=== PATIENT | female | born 1975 | race Caucasian/White ===

== ENCOUNTER 2020-11-12 13:21 | Emergency (ER) | payer MEDICARE, BC ==
[2020-11-12] MEDS ORDERED: Ketorolac 30 MG/ML SDV IM STA (13:26)
[2020-11-12] MEDS ORDERED: Cyclobenzaprine 10 MG Tab PO ONE (13:26)
[2020-11-12] MEDS ORDERED: Acetaminophen 500 MG Tab PO ONE (13:26)
--- NOTE | 2020-11-12 14:18 | EDM.PDOC ---
ED HPI GENERAL MEDICAL PROBLEM - General Stated Complaint: BACK PAIN Time Seen by Provider: 11/12/20 14:00 Source of Information: Reports: Patient History Limitations: Reports: No Limitations - History of Present Illness INITIAL COMMENTS - FREE TEXT/NARRATIVE: Patient presented to the ED because of low back pain after lifting some heavy staff. The pain is over the lumar region radiating to he rt buttock. The pain is sharp 8/10 and worse with movements. - Related Data Allergies Allergy/AdvReac Type Severity Reaction Status Date / Time Sulfa (Sulfonamide Allergy Hives Verified 11/12/20 13:45 Antibiotics) Home Meds: Home Meds Brexpiprazole [Rexulti] 3 mg PO DAILY 11/12/20 [History] Cyclobenzaprine [Flexeril] 10 mg PO TID PRN #15 tab 11/12/20 [Rx] FLUoxetine HCl [Fluoxetine HCl] 40 mg PO DAILY 11/12/20 [History] Ibuprofen 800 mg PO Q8H PRN #30 tablet 11/12/20 [Rx] atenoloL [Atenolol] 100 mg PO DAILY 11/12/20 [History] lisinopriL [Lisinopril] 10 mg PO DAILY 11/12/20 [History] oxyCODONE HCl/Acetaminophen [Oxycodone-Acetaminophen 5-325] 1 each PO BID 11/12/20 [History] predniSONE [Prednisone] 40 mg PO DAILY #10 tablet 11/12/20 [Rx] tiZANidine [Zanaflex] 4 mg PO DAILY 11/12/20 [History] ED ROS GENERAL - Review of Systems Review Of Systems: See Below Constitutional: Reports: No Symptoms HEENT: Reports: No Symptoms Respiratory: Reports: No Symptoms Cardiovascular: Reports: No Symptoms Endocrine: Reports: No Symptoms GI/Abdominal: Reports: No Symptoms : Reports: No Symptoms Musculoskeletal: Reports: Back Pain Skin: Reports: No Symptoms Neurological: Reports: No Symptoms Psychiatric: Reports: No Symptoms ED EXAM,LOWER BACK PAIN/INJURY - Physical Exam Exam: See Below Exam Limited By: No Limitations General Appearance: Alert, No Apparent Distress Ears: Normal External Exam, Normal Canal Nose: Normal Inspection, Normal Mucosa Throat/Mouth: Normal Inspection, Normal Lips, Normal Teeth Head: Atraumatic, Normocephalic Neck: Normal Inspection, Supple, Non-Tender, Full Range of Motion Respiratory/Chest: No Respiratory Distress, Lungs Clear, Normal Breath Sounds Cardiovascular: Normal Peripheral Pulses, Regular Rate, Rhythm, No Edema, No Gallop GI/Abdominal: Normal Bowel Sounds, Soft, Non-Tender, No Organomegaly Back Exam: Normal Inspection, Muscle Spasm, Paraspinal Tenderness Extremities: Normal Inspection Neurological: Alert, Normal Mood/Affect, Normal Dorsiflexion Course - Vital Signs Text/Narrative:: Toradol 60 mg IM x1 Flexeril 10 mg PO x1 Tylenol 1000 mg po x1 - Orders/Labs/Meds Meds: Medications Discontinued Medications Generic Name Dose Route Start Last Admin Trade Name Freq PRN Reason Stop Dose Admin Acetaminophen 1,000 mg 11/12/20 13:26 11/12/20 13:56 Acetaminophen 500 Mg Tab PO 11/12/20 13:27 1,000 mg ONETIME ONE Administration Cyclobenzaprine HCl 10 mg 11/12/20 13:26 11/12/20 13:57 Cyclobenzaprine 10 Mg Tab PO 11/12/20 13:27 10 mg ONETIME ONE Administration Ketorolac Tromethamine 60 mg 11/12/20 13:26 11/12/20 13:54 Ketorolac 30 Mg/Ml Sdv IM 11/12/20 13:27 60 mg NOW STA Administration Departure - Departure Time of Disposition: 14:30 Disposition: Home, Self-Care 01 Condition: Good Clinical Impression: Lumbar strain, Sciatica - Discharge Information Prescriptions: Cyclobenzaprine [Flexeril] 10 mg PO TID PRN #15 tab PRN Reason: Spasms Ibuprofen 800 mg PO Q8H PRN #30 tablet PRN Reason: Pain predniSONE [Prednisone] 40 mg PO DAILY #10 tablet Instructions: Sciatica, [id number], Lumbosacral Strain Referrals: Melani Platt NP [Primary Care Provider] - Additional Instructions: Please read discharge instructions on lumbosacral strain and sciatica Take all the following medications at the same time for better pain relief: Ibuprofen 800 mg, tylenol 1000, flexeril 10 mg every 8 hours as needed for pain and spasms. Prednisone 20 mg, 2 tablets daily for 5 days. Take your firs dose today Follow up as needed
== END 2020-11-12 14:45 | disposition home or self-care (01) ==
LOC: FB.ED 13:21
DX: M54.41 Lumbago with sciatica, right side (principal); Z88.2 Allergy status to sulfonamides; Z79.899 Other long term (current) drug therapy; X50.1XXA Overexertion from prolonged static or awkward postures, initial encounter
CPT/HCPCS: 96372; 99283; A9270; J1885

== ENCOUNTER 2021-01-14 19:29 | Emergency (ER) | payer BC, MEDICARE ==
--- NOTE | 2021-01-14 20:34 | EDM.PDOC ---
ED HPI GENERAL MEDICAL PROBLEM - General Chief Complaint: General Stated Complaint: SORE THROAT Time Seen by Provider: 01/14/21 19:45 Source of Information: Reports: Patient History Limitations: Reports: No Limitations - History of Present Illness INITIAL COMMENTS - FREE TEXT/NARRATIVE: Patient presented to the ED because of sore throat which started yesterday. There is no cough/cold or fever. She thinks she have strep throat. - Related Data Allergies Allergy/AdvReac Type Severity Reaction Status Date / Time Sulfa (Sulfonamide Allergy Hives Verified 01/14/21 19:39 Antibiotics) Home Meds: Home Meds Brexpiprazole [Rexulti] 3 mg PO DAILY 11/12/20 [History] Cyclobenzaprine [Flexeril] 10 mg PO TID PRN #15 tab 11/12/20 [Rx] FLUoxetine HCl [Fluoxetine HCl] 40 mg PO DAILY 11/12/20 [History] Ibuprofen 800 mg PO Q8H PRN #30 tablet 11/12/20 [Rx] atenoloL [Atenolol] 100 mg PO DAILY 11/12/20 [History] lisinopriL [Lisinopril] 10 mg PO DAILY 11/12/20 [History] oxyCODONE HCl/Acetaminophen [Oxycodone-Acetaminophen 5-325] 1 each PO BID 11/12/20 [History] predniSONE [Prednisone] 40 mg PO DAILY #10 tablet 11/12/20 [Rx] tiZANidine [Zanaflex] 4 mg PO DAILY 11/12/20 [History] Past Medical History Cardiovascular History: Reports: Hypertension Respiratory History: Reports: None Genitourinary History: Reports: None 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 Musculoskeletal History: Reports: Back Pain, Chronic Neurological History: Reports: None Psychiatric History: Reports: None Endocrine/Metabolic History: Reports: Obesity/BMI 30+ Hematologic History: Reports: None Oncologic (Cancer) History: Reports: None Dermatologic History: Reports: None - Infectious Disease History Infectious Disease History: Reports: None - Past Surgical History GI Surgical History: Reports: Cholecystectomy Social & Family History - Family History Family Medical History: No Pertinent Family History - Tobacco Use Tobacco Use Status *Q: Unknown Ever Used Tobacco - Caffeine Use Caffeine Use: Reports: None ED ROS GENERAL - Review of Systems Review Of Systems: See Below Constitutional: Reports: No Symptoms HEENT: Reports: Throat Pain Respiratory: Reports: No Symptoms Cardiovascular: Reports: No Symptoms Endocrine: Reports: No Symptoms GI/Abdominal: Reports: No Symptoms : Reports: No Symptoms Musculoskeletal: Reports: No Symptoms Skin: Reports: No Symptoms Neurological: Reports: No Symptoms Psychiatric: Reports: No Symptoms ED EXAM, GENERAL - Physical Exam Exam: See Below Exam Limited By: No Limitations General Appearance: Alert, No Apparent Distress Ears: Normal External Exam, Normal Canal Nose: Normal Inspection, Normal Mucosa, No Blood Throat/Mouth: Normal Inspection, Normal Lips, Normal Teeth, Other (pharyngeal erythema) Neck: Normal Inspection, Supple, Non-Tender, Full Range of Motion Respiratory/Chest: No Respiratory Distress, Lungs Clear, Normal Breath Sounds, No Accessory Muscle Use, Chest Non-Tender Cardiovascular: Normal Peripheral Pulses, Regular Rate, Rhythm, No Edema, No Gallop, No JVD, No Murmur, No Rub GI/Abdominal: Normal Bowel Sounds, Soft, Non-Tender, No Organomegaly, No Distention, No Abnormal Bruit, No Mass Back Exam: Normal Inspection, Full Range of Motion Extremities: Normal Inspection, Normal Range of Motion, Non-Tender, No Pedal Edema, Normal Capillary Refill Neurological: Alert, Oriented, CN II-XII Intact Course - Vital Signs Text/Narrative:: Rapid strep test-negative Last Recorded V/S: Last Vital Signs Temp 36.7 C 01/14/21 19:39 Pulse 86 01/14/21 19:39 Resp 18 01/14/21 19:39 BP 147/101 H 01/14/21 19:39 Pulse Ox 99 01/14/21 19:39 - Orders/Labs/Meds Labs: Laboratory Tests 01/14/21 Range/Units 19:48 Group A Strep (PCR) Not detected (NOT DETECT) Departure - Departure Time of Disposition: 20:35 Disposition: Home, Self-Care 01 Condition: Good Clinical Impression: Pharyngitis - Discharge Information Instructions: Pharyngitis, [id number] Referrals: PCP,None [Primary Care Provider] - Forms: ED Department Discharge Additional Instructions: Please read discharge instructions on pharyngitis/sore throat Your strep test in negative, that means you don't have strep throat Drink ice water as frequent as you can Follow up as needed Sepsis Event Note (ED) - Evaluation Sepsis Screening Result: No Definite Risk
== END 2021-01-14 20:39 | disposition home or self-care (01) ==
LOC: FB.ED 19:29
DX: J02.9 Acute pharyngitis, unspecified (principal); I10 Essential (primary) hypertension; E66.9 Obesity, unspecified; Z88.2 Allergy status to sulfonamides; Z79.899 Other long term (current) drug therapy; Z68.43 Body mass index [BMI] 50.0-59.9, adult
CPT/HCPCS: 87651-QW; 99283

== ENCOUNTER 2021-06-14 12:42 | Emergency (ER) | payer MEDICARE, BC ==
--- NOTE | 2021-06-14 14:03 | EDM.PDOC ---
ED HPI GENERAL MEDICAL PROBLEM - General Chief Complaint: Upper Extremity Injury/Pain Stated Complaint: BROKE RING FINGER ON R HAND Time Seen by Provider: 06/14/21 13:40 Source of Information: Reports: Patient - History of Present Illness INITIAL COMMENTS - FREE TEXT/NARRATIVE: 5-year-old lady came to the emergency department for evaluation of pain at the distal aspect of her right fourth upper extremity digit. She states that she slipped in the snow last night and fell forward and braced herself with her hands and had immediate sharp pain at the distal aspect of her right fourth digit with swelling. Did not do anything at home to help alleviate the pain including no ice no Tylenol/acetaminophen, no NSAIDs. He has no other acute complaints including fever, chills, upper respiratory symptoms, chest pain, shortness of breath, change in bowel or bladder habits. 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 Musculoskeletal History: Reports: Back Pain, Chronic Neurological History: Reports: None Psychiatric History: Reports: None Endocrine/Metabolic History: Reports: Obesity/BMI 30+ Hematologic History: Reports: None Oncologic (Cancer) History: Reports: None Dermatologic History: Reports: None - Infectious Disease History Infectious Disease History: Reports: Chicken Pox - Past Surgical History GI Surgical History: Reports: Cholecystectomy Social & Family History - Family History Family Medical History: No Pertinent Family History - Caffeine Use Caffeine Use: Reports: None Review of Systems - Review of Systems Review Of Systems: See Below Constitutional: Reports: No Symptoms Eyes: Reports: No Symptoms Ears: Reports: No Symptoms Nose: Reports: No Symptoms Mouth/Throat: Reports: No Symptoms Respiratory: Reports: No Symptoms GI/Abdominal: Reports: No Symptoms Genitourinary: Reports: No Symptoms Musculoskeletal: Reports: Hand Pain Skin: Reports: No Symptoms Neurological: Reports: No Symptoms Psychiatric: Reports: No Symptoms ED EXAM, GENERAL - Physical Exam Exam: See Below Exam Limited By: No Limitations General Appearance: Alert, WD/WN, No Apparent Distress Eye Exam: Bilateral Eye: EOMI Head: Atraumatic, Normocephalic Neck: Normal Inspection Respiratory/Chest: No Respiratory Distress, Lungs Clear Cardiovascular: Regular Rate, Rhythm Peripheral Pulses: 2+: Radial (L), Radial (R) GI/Abdominal: Normal Bowel Sounds, Soft, Non-Tender Back Exam: Normal Inspection Extremities: No Pedal Edema, Other (Visual inspection of the right hand fourth digit shows swelling, erythema, ecchymosis. Sensation, active range of motion, and capillary refill intact) Neurological: Alert, Oriented, CN II-XII Intact, Normal Cognition, Normal Gait Psychiatric: Normal Affect, Normal Mood Skin Exam: Warm, Dry, Intact Course - Vital Signs Text/Narrative:: Review of x-ray shows a radiologic abnormality that could represent bone edema. There is no obvious fracture and there is no dislocation. She will be given a brace and sent home. Patient advised to rest, ice, elevate, alternate Tylenol and ibuprofen. - Orders/Labs/Meds Orders: Active Orders 24 hr Category Date Time Status Fingers Fourth Digit Rt F8 [CR] Stat Exams 06/14/21 13:05 Taken Departure - Departure Time of Disposition: 14:03 Disposition: Home, Self-Care 01 Condition: Good Clinical Impression: Finger pain, right - Discharge Information *PRESCRIPTION DRUG MONITORING PROGRAM REVIEWED*: Not Applicable *COPY OF PRESCRIPTION DRUG MONITORING REPORT IN PATIENT DEBI: Not Applicable Instructions: Cast or Splint Care, Adult, [id number], Finger Fracture, Adult, [id number] Referrals: Ele Santiago, SHOT CORE DRILL OPERATOR [Primary Care Provider] - Additional Instructions: Patient encouraged to wear her splint as often as possible including at night. Patient encouraged to rest, ice, elevate, and alternate Tylenol and ibuprofen for pain control. Patient encouraged to follow-up with her primary care physician. - My Orders Last 24 Hours: My Active Orders 06/14/21 13:05 Fingers Fourth Digit Rt F8 [CR] Stat - Assessment/Plan Last 24 Hours: My Active Orders 06/14/21 13:05 Fingers Fourth Digit Rt F8 [CR] Stat
== END 2021-06-14 14:15 | disposition home or self-care (01) ==
LOC: FB.ED 12:42
DX: S60.041A Contusion of right ring finger without damage to nail, initial encounter (principal); E66.9 Obesity, unspecified; Z68.43 Body mass index [BMI] 50.0-59.9, adult; Z88.2 Allergy status to sulfonamides; Z79.899 Other long term (current) drug therapy; W00.0XXA Fall on same level due to ice and snow, initial encounter
CPT/HCPCS: 73140-F8; 99283-25

== ENCOUNTER 2021-10-24 11:22 | Emergency (ER) | payer BC, MEDICARE ==
[2021-10-24] MEDS ORDERED: traMADol 50 MG Tab PO ONE ×2 (11:23→14:05)
[2021-10-24] MEDS ORDERED: Cyclobenzaprine 10 MG Tab PO ONE (11:23)
== END 2021-10-24 14:35 | disposition home or self-care (01) ==
LOC: FB.ED 11:22
DX: M51.16 Intervertebral disc disorders with radiculopathy, lumbar region (principal); M25.561 Pain in right knee; M25.562 Pain in left knee; I10 Essential (primary) hypertension; E66.01 Morbid (severe) obesity due to excess calories; Z68.30 Body mass index [BMI] 30.0-30.9, adult; Z88.2 Allergy status to sulfonamides; Z79.899 Other long term (current) drug therapy
CPT/HCPCS: 73562-50; 99282; 99283-25; A9270-GY

== ENCOUNTER 2022-01-17 09:12 | Emergency (ER) | payer BC, MEDICARE ==
[2022-01-17] MEDS: traMADol 50 MG Tab PO ONE (09:33)
== END 2022-01-17 10:10 | disposition home or self-care (01) ==
LOC: FB.ED 09:12
DX: G89.29 Other chronic pain (principal); M54.50 Low back pain, unspecified; I10 Essential (primary) hypertension; E66.9 Obesity, unspecified; Z68.43 Body mass index [BMI] 50.0-59.9, adult; Z88.2 Allergy status to sulfonamides; Z79.899 Other long term (current) drug therapy; Z90.49 Acquired absence of other specified parts of digestive tract
CPT/HCPCS: 99282; 99283; A9270-GY

== ENCOUNTER 2022-03-14 07:09 | Emergency (ER) | payer BC, MEDICARE ==
[2022-03-14] MEDS: Gabapentin 300 MG Cap PO ONE (08:01)
[2022-03-14] MEDS: Ketorolac 30 MG/ML SDV IM ONE (08:01)
== END 2022-03-14 08:32 | disposition home or self-care (01) ==
LOC: FB.ED 07:09
DX: G89.29 Other chronic pain (principal); M54.50 Low back pain, unspecified; I10 Essential (primary) hypertension; E66.9 Obesity, unspecified; Z68.43 Body mass index [BMI] 50.0-59.9, adult; Z88.2 Allergy status to sulfonamides; Z79.899 Other long term (current) drug therapy
CPT/HCPCS: 96372; 99283; A9270-GY; J1885

== ENCOUNTER 2022-05-11 09:28 | Emergency (ER) | payer BC, MEDICARE ==
[2022-05-11] MEDS ORDERED: Ketorolac 30 MG/ML SDV IM ONE (10:14)
== END 2022-05-11 10:33 | disposition home or self-care (01) ==
LOC: FB.ED 09:28
DX: M46.1 Sacroiliitis, not elsewhere classified (principal); I10 Essential (primary) hypertension; E66.9 Obesity, unspecified; Z68.43 Body mass index [BMI] 50.0-59.9, adult; Z88.2 Allergy status to sulfonamides; Z79.899 Other long term (current) drug therapy; Z90.49 Acquired absence of other specified parts of digestive tract
CPT/HCPCS: 96372; 99283; J1885

== ENCOUNTER 2022-11-14 20:24 | Emergency (ER) | payer BC, MEDICARE ==
[2022-11-14] MEDS ORDERED: Sodium Chloride 0.9% 10 ML Syringe FLUSH PRN (21:07)
[2022-11-14] MEDS ORDERED: Ondansetron 4 MG/2 ML SDV IVPUSH ONE (21:09)
[2022-11-14] MEDS ORDERED: Morphine 4 MG/ML VIAL IVPUSH ONE (21:09)
[2022-11-14] MEDS ORDERED: Sodium Chloride 0.9% 1,000 ML IV SCH (21:15)
[2022-11-14] MEDS ORDERED: Iopamidol 755 Mg/ML 200 ML Bottle IV ONE (21:28)
[2022-11-14 21:51] LABS: BLOOD UREA NITROGEN,BUN 22 mg/dL (7-18); BUN/CREATININE RATIO 27.5 (9-20); CARBON DIOXIDE,CO2 26 mmol/L (21-32); CHLORIDE,CL 103 mmol/L (100-110); CREATININE 0.8 mg/dL (0.55-1.02); ESTIMATED GFR 91 mL/min (>60); GLUCOSE RANDOM 103 mg/dL (80-116); POTASSIUM,K 3.9 mmol/L (3.5-5.3); SODIUM,NA 139 mmol/L (135-145)
[2022-11-14 21:56] LABS: BASOPHILS ABSOLUTE AUTO 0.1 x10-3/uL (0.0-0.1); BASOPHILS PERCENT AUTO 0.5 % (0.2-1.5); EOSINOPHILS ABSOLUTE AUTO 0.2 x10-3/uL (0.0-0.8); EOSINOPHILS PERCENT AUTO 1.8 % (0.6-8.1); HEMOGLOBIN 14.2 g/dL (11.4-15.5); LYMPHOCYTES ABSOLUTE AUTO 2.6 x10-3/uL (1.0-4.4); LYMPHOCYTES PERCENT AUTO 25.8 % (18.4-52.1); MEAN CORPUSCULAR HEMOGLOBIN 29.3 pg (23.9-33.9); MEAN CORPUSCULAR HGB CONC 33.8 g/dL (31.9-34.8); MEAN CORPUSCULAR VOLUME 86.6 fL (76.7-100.5); MEAN PLATELET VOLUME 8.5 fL (7.1-12.4); MONOCYTES ABSOLUTE AUTO 0.6 x10-3/uL (0.3-1.0); MONOCYTES PERCENT AUTO 6.3 % (4.4-15.7); NEUTROPHILS ABSOLUTE AUTO 6.6 x10-3/uL (1.5-6.3); NEUTROPHILS PERCENT AUTO 65.6 % (30.8-76.2); PLATELET COUNT,PLT 289 x10(3)uL (151-488); RED BLOOD CELL COUNT 4.84 x10(6)uL (3.60-5.20); RED CELL DISTRIBUTION WIDTH 14.1 % (12.3-16.5); WHITE BLOOD CELL COUNT,WBC 10.1 x10-3/uL (3.0-10.3)
[2022-11-14 21:57] LABS: A/G RATIO 0.8; ALANINE AMINOTRANSFERASE,ALT 29 U/L (12-36); ALBUMIN 3.4 g/dL (3.5-5.2); ALKALINE PHOSPHATASE 108 IU/L (56-112); AMYLASE 25 U/L (25-115); ASPARTATE AMNIOTRANSFERASE,AST 19 IU/L (5-25); BILIRUBIN TOTAL 0.4 mg/dL (0.1-1.3); PROTEIN TOTAL,TP 7.8 g/dL (6.0-8.0)
== END 2022-11-14 23:15 | disposition home or self-care (01) ==
LOC: FB.ED 20:24
DX: K21.9 Gastro-esophageal reflux disease without esophagitis (principal); I10 Essential (primary) hypertension; E66.9 Obesity, unspecified; Z68.42 Body mass index [BMI] 45.0-49.9, adult; Z88.2 Allergy status to sulfonamides; Z79.899 Other long term (current) drug therapy; Z90.49 Acquired absence of other specified parts of digestive tract; Z98.84 Bariatric surgery status
CPT/HCPCS: 74177; 80053; 82150; 83690; 85025; 96361; 96374; 96375; 99284; J2270; J2405; J7030; Q9967

== ENCOUNTER 2023-01-24 02:59 | Emergency (ER) | payer BC, MEDICARE ==
[2023-01-24] MEDS: Lidocaine 2% HCl 6 ML Jel MM STA ×2 (03:44→03:46)
[2023-01-24] MEDS: Aluminum Hydroxide/Magnesium Hydroxide Susp 30 ML Cup PO STA (03:44)
[2023-01-24] MEDS: Metolazone 2.5 MG Tab PO ONE (03:47)
[2023-01-24] MEDS: Furosemide 20 MG/2 ML VIAL IVPUSH ONE (03:47)
[2023-01-24 04:01] LABS: BASOPHILS PERCENT AUTO 0.3 % (0.2-1.5); EOSINOPHILS ABSOLUTE AUTO 0.1 x10-3/uL (0.0-0.8); EOSINOPHILS PERCENT AUTO 0.9 % (0.6-8.1); HEMATOCRIT 41.5 % (34.2-48.2); HEMOGLOBIN 13.9 g/dL (11.4-15.5); LYMPHOCYTES ABSOLUTE AUTO 1.7 x10-3/uL (1.0-4.4); LYMPHOCYTES PERCENT AUTO 18.9 % (18.4-52.1); MEAN CORPUSCULAR HEMOGLOBIN 29.3 pg (23.9-33.9); MEAN CORPUSCULAR HGB CONC 33.5 g/dL (31.9-34.8); MEAN CORPUSCULAR VOLUME 87.3 fL (76.7-100.5); MONOCYTES ABSOLUTE AUTO 0.5 x10-3/uL (0.3-1.0); MONOCYTES PERCENT AUTO 5.3 % (4.4-15.7); NEUTROPHILS ABSOLUTE AUTO 6.8 x10-3/uL (1.5-6.3); NEUTROPHILS PERCENT AUTO 74.6 % (30.8-76.2); PLATELET COUNT,PLT 246 x10(3)uL (151-488); RED BLOOD CELL COUNT 4.75 x10(6)uL (3.60-5.20); RED CELL DISTRIBUTION WIDTH 14.4 % (12.3-16.5); WHITE BLOOD CELL COUNT,WBC 9.2 x10-3/uL (3.0-10.3)
[2023-01-24 04:02] LABS: BLOOD UREA NITROGEN,BUN 16 mg/dL (7-18); BUN/CREATININE RATIO 22.9 (9-20); CALCIUM 8.5 mg/dL (8.6-10.2); CARBON DIOXIDE,CO2 25 mmol/L (21-32); CHLORIDE,CL 102 mmol/L (100-110); CREATININE 0.7 mg/dL (0.55-1.02); ESTIMATED GFR 107 mL/min (>60); GLUCOSE RANDOM 101 mg/dL (80-116); POTASSIUM,K 3.8 mmol/L (3.5-5.3); SODIUM,NA 139 mmol/L (135-145)
[2023-01-24 04:08] LABS: A/G RATIO 0.9; ALANINE AMINOTRANSFERASE,ALT 22 U/L (12-36); ALBUMIN 3.5 g/dL (3.5-5.2); ALKALINE PHOSPHATASE 113 IU/L (56-112); AMYLASE 21 U/L (25-115); ASPARTATE AMNIOTRANSFERASE,AST 15 IU/L (5-25); BILIRUBIN TOTAL 0.7 mg/dL (0.1-1.3); PROTEIN TOTAL,TP 7.6 g/dL (6.0-8.0)
== END 2023-01-24 04:35 | disposition home or self-care (01) ==
LOC: FB.ED 02:59
DX: K27.9 Peptic ulcer, site unspecified, unspecified as acute or chronic, without hemorrhage or perforation (principal); K21.9 Gastro-esophageal reflux disease without esophagitis; E66.9 Obesity, unspecified; I10 Essential (primary) hypertension; Z68.41 Body mass index [BMI] 40.0-44.9, adult; Z90.49 Acquired absence of other specified parts of digestive tract; Z88.2 Allergy status to sulfonamides; Z79.899 Other long term (current) drug therapy
CPT/HCPCS: 36415; 80053; 82150; 83690; 85025; 99284; A9270

== ENCOUNTER 2024-03-21 22:17 | Emergency (ER) | payer BC, MEDICARE ==
[2024-03-21] MEDS ORDERED: traMADol 50 MG Tab PO ONE (22:18)
[2024-03-21] MEDS: traMADol 50 MG Tab PO ONE ×2 (22:38→23:48)
== END 2024-03-22 00:25 | disposition home or self-care (01) ==
LOC: FB.ED 22:17
DX: S62.360A Nondisplaced fracture of neck of second metacarpal bone, right hand, initial encounter for closed fracture (principal); I10 Essential (primary) hypertension; E66.9 Obesity, unspecified; Z68.42 Body mass index [BMI] 45.0-49.9, adult; Z86.16 Personal history of COVID-19; Z90.49 Acquired absence of other specified parts of digestive tract; Z79.899 Other long term (current) drug therapy; Z88.2 Allergy status to sulfonamides; X58.XXXA Exposure to other specified factors, initial encounter
CPT/HCPCS: 29125; 73130; 99283; A9270

== ENCOUNTER 2024-03-29 07:10 | Emergency (ER) | payer BC, MEDICARE ==
[2024-03-29] MEDS: Ibuprofen 400 MG Tab PO ONE (08:06)
[2024-03-29] MEDS: traMADol 50 MG Tab PO ONE (08:07)
[2024-03-29] MEDS ORDERED: Ibuprofen 400 MG Tab ONE (08:10)
== END 2024-03-29 08:19 | disposition home or self-care (01) ==
LOC: FB.ED 07:10
DX: S93.602A Unspecified sprain of left foot, initial encounter (principal); I10 Essential (primary) hypertension; K21.9 Gastro-esophageal reflux disease without esophagitis; E66.9 Obesity, unspecified; Z86.16 Personal history of COVID-19; Z90.49 Acquired absence of other specified parts of digestive tract; Z79.899 Other long term (current) drug therapy; Z88.2 Allergy status to sulfonamides; X58.XXXA Exposure to other specified factors, initial encounter
CPT/HCPCS: 73630-LT; 99283; A9270-GY

== ENCOUNTER 2024-08-14 15:19 | Emergency (ER) | payer BC, MEDICARE ==
[2024-08-14] MEDS ORDERED: Naloxone 0.4 MG/ML SDV IVPUSH PRN (15:43)
[2024-08-14] MEDS ORDERED: Sodium Chloride 0.9% 10 ML Syringe FLUSH PRN (15:43)
[2024-08-14] MEDS: Ondansetron 4 MG/2 ML SDV IVPUSH ONE (15:59)
[2024-08-14] MEDS: HYDROmorphone 2 MG/ML SDV IVPUSH ONE (15:59)
[2024-08-14] MEDS: Sodium Chloride 0.9% 1,000 ML IV ONE (16:02)
[2024-08-14 16:06] LABS: BASOPHILS PERCENT AUTO 0.4 % (0.2-1.5); EOSINOPHILS ABSOLUTE AUTO 0.1 x10-3/uL (0.0-0.8); EOSINOPHILS PERCENT AUTO 1.2 % (0.6-8.1); HEMATOCRIT 39.6 % (34.2-48.2); HEMOGLOBIN 13.3 g/dL (11.4-15.5); LYMPHOCYTES ABSOLUTE AUTO 1.7 x10-3/uL (1.0-4.4); LYMPHOCYTES PERCENT AUTO 14.8 % (18.4-52.1); MEAN CORPUSCULAR HEMOGLOBIN 32.6 pg (23.9-33.9); MEAN CORPUSCULAR HGB CONC 33.5 g/dL (31.9-34.8); MEAN CORPUSCULAR VOLUME 97.3 fL (76.7-100.5); MEAN PLATELET VOLUME 7.1 fL (7.1-12.4); MONOCYTES ABSOLUTE AUTO 0.6 x10-3/uL (0.3-1.0); MONOCYTES PERCENT AUTO 5.1 % (4.4-15.7); NEUTROPHILS ABSOLUTE AUTO 8.8 x10-3/uL (1.5-6.3); NEUTROPHILS PERCENT AUTO 78.5 % (30.8-76.2); PLATELET COUNT,PLT 279 x10(3)uL (151-488); RED BLOOD CELL COUNT 4.07 x10(6)uL (3.60-5.20); WHITE BLOOD CELL COUNT,WBC 11.3 x10-3/uL (3.0-10.3)
[2024-08-14 16:08] LABS: BLOOD UREA NITROGEN,BUN 13 mg/dL (7-18); BUN/CREATININE RATIO 16.3 (9-20); CALCIUM 8.6 mg/dL (8.6-10.2); CARBON DIOXIDE,CO2 24 mmol/L (21-32); CHLORIDE,CL 106 mmol/L (100-110); CREATININE 0.8 mg/dL (0.55-1.02); ESTIMATED GFR 91 mL/min (>60); GLUCOSE RANDOM 98 mg/dL (80-116); POTASSIUM,K 4.3 mmol/L (3.5-5.3); SODIUM,NA 140 mmol/L (135-145)
[2024-08-14 16:14] LABS: A/G RATIO 0.7; ALANINE AMINOTRANSFERASE,ALT 68 U/L (12-36); ALBUMIN 3.1 g/dL (3.5-5.2); ALKALINE PHOSPHATASE 164 IU/L (56-112); ASPARTATE AMNIOTRANSFERASE,AST 57 IU/L (5-25); BILIRUBIN TOTAL 0.7 mg/dL (0.1-1.3); MAGNESIUM 1.6 mg/dL (1.8-2.5); PROTEIN TOTAL,TP 7.9 g/dL (6.0-8.0)
[2024-08-14 16:16] LABS: C-REACTIVE PROTEIN 3.56 mg/dL (<0.50)
[2024-08-14 16:19] LABS: BILIRUBIN,URINE NEGATIVE (NEGATIVE); GLUCOSE,URINE NORMAL (NORMAL); KETONES,URINE NEGATIVE (NEGATIVE); LEUKOCYTE ESTERASE,URINE NEGATIVE (NEGATIVE); NITRITE,URINE NEGATIVE (NEGATIVE); OCCULT BLOOD,URINE MODERATE (NEGATIVE); PROTEIN,URINE NEGATIVE (NEGATIVE); UROBILINOGEN,URINE 1 mg/dL (NEGATIVE)
[2024-08-14 16:21] LABS: APPEARANCE,URINE CLEAR (CLEAR); COLOR,URINE YELLOW (YELLOW); RBC,URINE 0-5 (0-5); SQUAMOUS EPITHELIAL CELLS,UR FEW (NS,R,O); WBC,URINE 0-5 (0-5)
[2024-08-14 16:22] LABS: BACTERIA,URINE FEW (NS)
[2024-08-14] MEDS: Iopamidol 755 Mg/ML 100 ML Bottle IV SCH (18:09)
[2024-08-14] MEDS: Piperacillin/Tazobactam 4.5 GM in Sodium Chloride 0.9% 100 ML IV ONE (21:58)
[2024-08-14] MEDS: Sodium Chloride 0.9% 1,000 ML IV SCH (23:00)
== END 2024-08-14 23:50 ==
LOC: FB.ED 15:19
DX: K56.609 Unspecified intestinal obstruction, unspecified as to partial versus complete obstruction (principal); K46.9 Unspecified abdominal hernia without obstruction or gangrene; E86.0 Dehydration; I10 Essential (primary) hypertension; Z88.2 Allergy status to sulfonamides; Z79.899 Other long term (current) drug therapy; Z86.16 Personal history of COVID-19; Z90.49 Acquired absence of other specified parts of digestive tract; Z90.710 Acquired absence of both cervix and uterus
CPT/HCPCS: 36415; 74177; 80053; 81001; 83605; 83690; 83735; 85025; 86140; 96361; 96365; 96375; 99285; J1171; J2405; J2543; Q9967

== ENCOUNTER 2025-06-02 08:06 | Emergency (ER) | payer BC, MEDICARE | END 2025-06-02 09:33 | disposition home or self-care (01) | LOC: FB.ED 08:06 | DX: S90.122A Contusion of left lesser toe(s) without damage to nail, initial encounter (principal); I10 Essential (primary) hypertension; E66.9 Obesity, unspecified; Z86.16 Personal history of COVID-19; Z90.710 Acquired absence of both cervix and uterus; Z90.49 Acquired absence of other specified parts of digestive tract; Z88.2 Allergy status to sulfonamides; Z68.41 Body mass index [BMI] 40.0-44.9, adult; X58.XXXA Exposure to other specified factors, initial encounter | CPT/HCPCS: 73660-T4; 99283 ==

== ENCOUNTER 2025-06-08 07:43 | Emergency (ER) | payer BC, MEDICARE ==
[2025-06-08] MEDS: fentaNYL 100 MCG/2 ML SDV IVPUSH ONE (08:48)
[2025-06-08] MEDS: Ondansetron 4 MG/2 ML SDV IVPUSH ONE (08:50)
[2025-06-08 09:04] LABS: BLOOD UREA NITROGEN,BUN 6 mg/dL (7-18); CARBON DIOXIDE,CO2 28 mmol/L (21-32); CHLORIDE,CL 105 mmol/L (100-110); CREATININE 0.7 mg/dL (0.55-1.02); EST CRCL DRUG DOSING (CG) 83.95 mL/min; ESTIMATED GFR 106 mL/min (>60); GLUCOSE RANDOM 81 mg/dL (80-116); POTASSIUM,K 3.9 mmol/L (3.5-5.3); SODIUM,NA 142 mmol/L (135-145)
[2025-06-08 09:05] LABS: BASOPHILS ABSOLUTE AUTO 0.0 x10-3/uL (0.0-0.1); BASOPHILS PERCENT AUTO 0.4 % (0.2-1.5); EOSINOPHILS ABSOLUTE AUTO 0.1 x10-3/uL (0.0-0.8); EOSINOPHILS PERCENT AUTO 0.8 % (0.6-8.1); LYMPHOCYTES ABSOLUTE AUTO 1.6 x10-3/uL (1.0-4.4); LYMPHOCYTES PERCENT AUTO 16.2 % (18.4-52.1); MEAN PLATELET VOLUME 7.4 fL (7.1-12.4); MONOCYTES ABSOLUTE AUTO 0.7 x10-3/uL (0.3-1.0); MONOCYTES PERCENT AUTO 7.0 % (4.4-15.7); NEUTROPHILS ABSOLUTE AUTO 7.4 x10-3/uL (1.5-6.3); NEUTROPHILS PERCENT AUTO 75.6 % (30.8-76.2); PLATELET COUNT,PLT 289 x10(3)uL (151-488); RED CELL DISTRIBUTION WIDTH 18.0 % (12.3-16.5); WHITE BLOOD CELL COUNT,WBC 9.8 x10-3/uL (3.0-10.3)
[2025-06-08 09:09] LABS: GLUCOSE,URINE NORMAL (NORMAL); OCCULT BLOOD,URINE NEGATIVE (NEGATIVE)
[2025-06-08 09:09] LABS: A/G RATIO 0.8; ALANINE AMINOTRANSFERASE,ALT 18 U/L (12-36); ASPARTATE AMNIOTRANSFERASE,AST 27 IU/L (5-25); BILIRUBIN TOTAL 0.7 mg/dL (0.1-1.3); PROTEIN TOTAL,TP 7.1 g/dL (6.0-8.0)
[2025-06-08 09:12] LABS: APPEARANCE,URINE CLOUDY (CLEAR)
[2025-06-08 09:15] LABS: RED BLOOD CELL COUNT 4.27 x10(6)uL (3.60-5.20)
[2025-06-08 09:20] LABS: SQUAMOUS EPITHELIAL CELLS,UR MANY (NS,R,O); YEAST,URINE FEW (NS)
== END 2025-06-08 10:18 | disposition home or self-care (01) ==
LOC: FB.ED 07:43
DX: K29.00 Acute gastritis without bleeding (principal); I10 Essential (primary) hypertension; K21.9 Gastro-esophageal reflux disease without esophagitis; Z86.16 Personal history of COVID-19; Z88.2 Allergy status to sulfonamides; Z79.899 Other long term (current) drug therapy
CPT/HCPCS: 36415; 74177; 80053; 81001; 83690; 85025; 96361; 96374; 96375; 99284; J2405; J3010; J7030